=== PATIENT | male | born 1955 | race African-American/Black ===

== ENCOUNTER 2017-03-23 12:58 | Outpatient (RCR) | payer OTHER, SELFPAY ==
--- NOTE | 2017-03-23 14:15 | HP.PTEVAL_ITS ---
Patient's Visit Information FELIPA VILLANUEVA is a 61 year old M referred to Physical Therapy by Justin CALDERON with a diagnosis of LUMBAGO. Date of Evaluation: 03/23/17 Physical Therapist: Micah Castro, PT, - Visit Plan Frequency: 2x /Week Duration: 4 Weeks Plan: DLS,POSTURE EX'S ,MECKENZIE EX'S - Subjective Subjective: This 61 y/o male presents to physical therapy with lumbago. Patient has lumbar pain many years. Paient has pain symmtrical lumbar. Symptoms worse with heavy lifting, occassional walking,bending. Dneis parathesia/tingling. Coughing/sneezing -. Seen Dr jesus alberto PT. NO MEDS. Pain doesnt affects sleeping.No prior PT. Patient h/o cervical spine. 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 SOCAIL: - Pain Bilateral Back Pain Intensity (Out of 10): 2 Pain Intensity Range: 10 - Objective POSTURE: WFL. GAIT: normal tomás reciprocal pattern. PALPATION: unremrkable. NEURO:reflexes L3-4,L4-5,L5-S1 2/3,MYTOMES INACT,DENIES PARATHESIA. SYMMTRIES : align. MMT: quads/hams 4/5 ,hip flexion 4/5,ankle 4/5 - Special Tests L/S Slump test left side: Negative L/S Slump test right side: Negative L/S Left Straight Leg Raise: Negative L/S Right Straight Leg Raise: Negative Lumbar Standing: Flexion - Mechanical Response: No effect Lumbar Standing: Flexion - Symptoms During Testing: No effect Lumbar Standing: Flexion - Symptoms After Testing: No effect Lumbar Standing: Extension - Mechanical Response: No effect Lumbar Standing: Extension - Symptoms During Testing: No effect Lumbar Standing: Extension - Symptoms After Testing: No effect Lumbar Standing: Right Side Glides - Mechanical Response: No effect Lumbar Standing: Right Side Vining - Symptoms During Testing: No effect Lumbar Standing: Right Side Vining - Symptoms After Testing: No effect Lumbar Standing: Left Side Vining - Mechanical Response: No effect Lumbar Standing: Left Side Vining - Symptoms During Testing: No effect Lumbar Standing: Left Side Vining - Symptoms After Testing: No effect Lumbar Lying: Flexion - Mechanical Response: No effect Lumbar Lying: Flexion - Symptoms During Testing: No effect Lumbar Lying: Extension - Mechanical Response: No effect Lumbar Lying: Extension - Symptoms During Testing: Increases Lumbar Lying: Extension - Symptoms After Testing: No worse - Goals Goal 1:: Independant with HEP Goal Time Frame: 4-6 Weeks Goal 2:: Independant with posture/body mechanics Goal Time Frame: 4-6 Weeks Goal 3:: No pain wit function activities Goal Time Frame: 4-6 Weeks Goal 4:: Patient d/c to prophalaxis Goal Time Frame: 4-6 Weeks Goal 5:: Patient have function of recovery Goal Time Frame: 4-6 Weeks - Rehabilitation Potential Physical Therapy Diagnosis: This patient has symmtrical lumbar pain with decrease core strength Rehabilitation Potential: Good - Anticipated Interventions Patient/Client Instruction: Educate patient on: Condition, Plan of Care For the Purpose of:: To decrease pain, To increase ROM, To improve muscle performance and motor function, To increase tolerance to activity/condition/ position, To improve performance and independence with ADL's, To improve ability of physical actions for home/community/work/leisure, To improve health of tissue, To decrease soft tissue restriction, To increase flexibility/ROM, To improve ability to perform tasks related to life management Therapeutic Exercise to Include: Strength training, Body mechanics, Postural training, Flexibilty training, Dynamic Lumbar Stabilization, Veronica Exercises For the Purpose of:: To decrease pain, To improve muscle performance and motor function, To increase tolerance to activity/condition/position, To improve performance and independence with ADL's, To improve ability of physical actions for home/community/work/leisure, To improve health of tissue, To decrease soft tissue restriction, To increase flexibility/ROM, To improve ability to perform tasks related to life management Thank you for the opportunity to evaluate your patient. For Medicare and Medicare HMO plans, please review the plan of care and approve it. It will need to be FAXED BACK to us at [phone] for Medicare purposes. Please let me know if there are questions or concerns regarding this plan of care. Physician Signature: Date:
--- NOTE | 2017-05-19 13:42 | HP.PTDCNRP_ITS ---
HP - Discharge Summary (1) - Patient Information FELIPA VILLANUEVA was seen in my office for initial evaluation on 03/23/17. The following Plan of Care was established for this patient: Initial Frequency: 2x /Week Initial Duration: 4 Weeks - Anticipated Interventions Patient/Client Instruction: Educate patient on: Condition, Plan of Care For the Purpose of:: To decrease pain, To increase ROM, To improve muscle performance and motor function, To increase tolerance to activity/condition/ position, To improve performance and independence with ADL's, To improve ability of physical actions for home/community/work/leisure, To improve health of tissue, To decrease soft tissue restriction, To increase flexibility/ROM, To improve ability to perform tasks related to life management Therapeutic Exercise to Include: Strength training, Body mechanics, Postural training, Flexibilty training, Dynamic Lumbar Stabilization, Veronica Exercises For the Purpose of:: To decrease pain, To improve muscle performance and motor function, To increase tolerance to activity/condition/position, To improve performance and independence with ADL's, To improve ability of physical actions for home/community/work/leisure, To improve health of tissue, To decrease soft tissue restriction, To increase flexibility/ROM, To improve ability to perform tasks related to life management This patient was last seen in our office . Pertinent comments regarding their Physical therapy will appear below: Patient seen for PT for Intial Evalution only and d/c to HEP. At this point I will be discontinuing this patient from physical therapy. I would be happy to see this patient again in the future if found appropriate by the physician. Thank you! Micah Castro, PT,
== END 2017-03-23 19:00 | disposition home or self-care (01) ==
LOC: PT 12:58
PROVIDERS: Family Provider Family Medicine; PCP Family Medicine; Visit Provider Family Medicine
DX: M54.5 Low back pain (principal)
CPT/HCPCS: 97110; 97161

== ENCOUNTER → 2017-08-03 14:51 | Outpatient (CLI) | payer OTHER, SELFPAY ==
--- NOTE | 2017-08-03 14:51 | DT_ITS ---
This patient was seen during an EMR downtime August 02, 2017 - August 09, 2017. This patient may have a combination of paper and electronic documentation or all paper documentation. All documentation is viewable within the e-chart portion of [facility] for each patient visit.
--- NOTE | 2017-08-03 17:00 | MRI_ITS ---
STUDY: MRI LUMBAR SPINE WITHOUT CONTRAST REASON FOR EXAM: Male, 61 years old. Low back pain TECHNIQUE: Standardized fat and water weighted pulse sequences were obtained in the sagittal and axial planes. COMPARISON: X-ray 03/15/2017 FINDINGS: There is a transitional vertebra designated S1 for the purposes of this dictation (image 7/13 sagittal T2). T12-L1: Normal endplates. Normal disc height, hydration and morphology. Normal bilateral facet joints. Normal central canal and bilateral lateral recesses. Normal bilateral intervertebral neural foramina. There is small focal shallow disc protrusion at T11-T12, incompletely included in the [id number]. Normal lumbar lordosis. There is no substantial scoliosis. Normal conus medullaris that terminates at the L1-2: There is disc desiccation, mild endplate spondylosis and disc bulge (image 7/13 sagittal T2). L2-3: Normal endplates. Normal disc height, hydration and morphology. Normal bilateral facet joints. Normal central canal and bilateral lateral recesses. Normal bilateral intervertebral neural foramina. L3-4: Normal endplates. Normal disc height, hydration and morphology. Normal bilateral facet joints. Normal central canal and bilateral lateral recesses. Normal bilateral intervertebral neural foramina. L4-5: There is disc desiccation, endplate spondylosis and shallow broad-based central/left foraminal/extraforaminal disc protrusion (image 8, 09/22 axial T2, 3, , 01/11 sagittal T2). Central and lateral recess spinal stenosis is mild to moderate in nature. Neural foraminal narrowing predominates on the left. L5-S1: Normal endplates. Normal disc height, hydration and morphology. Normal bilateral facet joints. Normal central canal and bilateral lateral recesses. Normal bilateral intervertebral neural foramina. Normal visualized sacral ala. Normal visualized paraspinous soft tissue structures. MRI/Spine Lumbar (Routine) IMPRESSION: Shallow broad-based disc protrusion, L4-L5, with mild to moderate central and lateral recess spinal stenosis and neural foraminal narrowing predominating on the left Electronically Signed: Scott Clinton MD at 11:30 EDT Tel , Service support ,
== END ==
PROVIDERS: Family Provider Family Medicine; PCP Family Medicine; Visit Provider Family Medicine
DX: M54.5 Low back pain (principal)
CPT/HCPCS: 72148

== ENCOUNTER 2017-08-30 12:00 | Outpatient (RCR) | payer OTHER, SELFPAY ==
--- NOTE | 2017-08-24 07:49 | HP.PTEVAL ---
Patient's Visit Information FELIPA VILLANUEVA is a 61 year old M referred to Physical Therapy by Justin Henriquez with a diagnosis of Lumbago, low back pain. Date of Evaluation: 08/23/17 Physical Therapist: Micah Castro PT, - Visit Plan Frequency: 1-2x /Week Duration: 4 Weeks Plan: REIL for self management. Progress core stability program next week. Can only come in for one f/u for now as pt leaves for [facility] [place] for a month on 09/03/17. - Subjective Subjective: Pt is a 61 y/o male referred for lumbago/back pain. Pt was seen in PT several months ago for same condition. He notes that after a long plane ride about a month ago to [place] he experienced a high amount of pain in his low back. He reports majority of his symptoms are located on his R side but will occasionally travel to the L side. He denies pain currently and overall has not had much pain since a month ago when his symptoms were exacerbated. He will report occasional radicular pain in the buttocks area. He had MRI performed which did show a disc protrusion and central/lateral stenosis. He leaves the country again on 09/03/17 for a month. Denies b/b incontinence, night pain, numbness, and weakness. Aggrevating factors: sitting. Easing factors: standing, walking. 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 SOCIAL: - Pain Low back Pain Intensity (Out of 10): 0 Pain Intensity Range: 10 - Objective OBSERVATION: Flexed sitting posture in waiting room. GAIT: normal tomás and non-antalgic. ROM: standing lumbar AROM full in all planes, some reproduction of symptoms with R LF. NEURO: dermatomes and myotomes intact. ASSESSORY: normal central PAIVM. FLEXIBILITY: HS normal Magdiel, - Special Tests L/S Left Straight Leg Raise: Negative L/S Right Straight Leg Raise: Negative - Goals Goal 1:: Pt will demonstrate proper upright sitting posture to improve tolerance to sitting. Goal Time Frame: 2-4 Weeks Goal 2:: Pt will be independent with HEP to sustain gains and allow him to self manage his symptoms. Goal Time Frame: 2-4 Weeks Goal 3:: Pt will report ability to sit without restriction to improve tolerance to travel duties for his job. Goal Time Frame: 2-4 Weeks Goal 4:: Pt will resume previous fitness routine to allow pt to maintain healthy lifestyle and for prophylatic spine care. Goal Time Frame: 2-4 Weeks - Rehabilitation Potential Physical Therapy Diagnosis: Pt is 61 y/o male referred for lumbago and low back pain. He was seen previously for physical therapy several months ago but had an exacerbation of symptoms a month ago when he was sitting for a long plane ride. His symptoms have nearly resolved since this incident. Since sitting exacerbated his symptoms and he improved with repeated extension in the past, assume an extension bias for this care. He has activity limitations that include decreased tolerance to sitting. This affects his participation with his usual activity level and travel duties for his job. He does exhibit some anxiety regarding his condition and this was addressed during the evaluation with education. Pt will benefit from skilled care to address the mentioned impairments to maximize the pt's functional potential. Rehabilitation Potential: Excellent - Anticipated Interventions Patient/Client Instruction: Educate patient on: Condition, Plan of Care, Benefits of Fitness Program For the Purpose of:: To decrease pain, To improve muscle performance and motor function, To improve ability to perform ADL's, To increase tolerance to activity/condition/position, To improve ability of physical actions for home/community/work/leisure, To improve health of tissue, To improve endurance, To reduce risk of recurrence, To improve self management Therapeutic Exercise to Include: Strength training, Endurance training, Body mechanics, Postural training, Active ROM, Dynamic Lumbar Stabilization, Veronica Exercises For the Purpose of:: To decrease pain, To improve muscle performance and motor function, To improve ability to perform ADL's, To increase tolerance to activity/condition/position, To improve ability of physical actions for home/community/work/leisure, To improve health of tissue, To reduce risk of recurrence, To prevent re-injury Functional electric stimulation: Yes TENS: Yes IF ES: Yes Other electric stimulation: Yes Cryotherapy (ice pack, ice massage): Yes Thermo therapy (hot pack): Yes Ultrasound (thermal/non thermal): Yes For the Purpose of:: To decrease pain, To improve muscle performance and motor function, To improve ability to perform ADL's, To improve ability of physical actions for home/community/work/leisure, To improve health of tissue Thank you for the opportunity to evaluate your patient. For Medicare and Medicare HMO plans, please review the plan of care and approve it. It will need to be FAXED BACK to us at [phone] for Medicare purposes. Please let me know if there are questions or concerns regarding this plan of care. Physician Signature: Date:
--- NOTE | 2018-01-12 15:28 | HP.PT.NRP ---
HP - Discharge Summary (1) - Patient Information FELIPA VILLANUEVA was seen in my office for initial evaluation on 08/23/17. The following Plan of Care was established for this patient: Initial Frequency: 1-2x /Week Initial Duration: 4 Weeks - Anticipated Interventions Patient/Client Instruction: Educate patient on: Condition, Plan of Care, Benefits of Fitness Program For the Purpose of:: To decrease pain, To improve muscle performance and motor function, To improve ability to perform ADL's, To increase tolerance to activity/condition/position, To improve ability of physical actions for home/community/work/leisure, To improve health of tissue, To improve endurance, To reduce risk of recurrence, To improve self management Therapeutic Exercise to Include: Strength training, Endurance training, Body mechanics, Postural training, Active ROM, Dynamic Lumbar Stabilization, Emma Exercises For the Purpose of:: To decrease pain, To improve muscle performance and motor function, To improve ability to perform ADL's, To increase tolerance to activity/condition/position, To improve ability of physical actions for home/community/work/leisure, To improve health of tissue, To reduce risk of recurrence, To prevent re-injury Functional electric stimulation: Yes TENS: Yes IF ES: Yes Other electric stimulation: Yes Cryotherapy (ice pack, ice massage): Yes Thermo therapy (hot pack): Yes Ultrasound (thermal/non thermal): Yes For the Purpose of:: To decrease pain, To improve muscle performance and motor function, To improve ability to perform ADL's, To improve ability of physical actions for home/community/work/leisure, To improve health of tissue This patient was last seen in our office 08/30/17. Pertinent comments regarding their Physical therapy will appear below: Patient seen for PT low back pain developing HEP WITH EMMA EX'S and DLS and patient education,Thus id d/c At this point I will be discontinuing this patient from physical therapy. I would be happy to see this patient again in the future if found appropriate by the physician. Thank you! Micah Castro, PT,
== END 2017-08-30 19:00 | disposition home or self-care (01) ==
LOC: PT 12:00
PROVIDERS: Family Provider Family Medicine; PCP Family Medicine; Visit Provider Family Medicine
DX: M54.5 Low back pain (principal)
CPT/HCPCS: 97110; 97161; 97530; 97535

== ENCOUNTER → 2017-11-02 09:08 | Outpatient (CLI) | payer OTHER, SELFPAY ==
[2017-11-02 10:08] LABS: Hemoglobin 14.4 g/dl (13.0-16.5); Mean Corp Hgb Conc 33.5 g/gl (32-36); Mean Corpuscular Hgb 27.3 pg (27.0-32.0); Mean Corpuscular Volume 81.6 fL (80-94); Mean Platelet Vol. 10.5 fl (6.2-12.0); Platelet Count 157 K/mm3 (150-450); RBC Distribution Width CV 12.7 % (11.6-14.6); RBC Distribution Width SD 38.2 fl (35.1-43.9); Red Blood Count 5.27 M/mm3 (4.6-6.2); White Blood Count 4.2 K/mm3 (4.4-11.0)
[2017-11-02 10:10] LABS: Scan Indicated on CBC? Y/N NO
[2017-11-02 10:39] LABS: ALB/GLOB Ratio 0.9 RATIO (0.9-2.4); AST(SGOT) 20 U/L (15-37); Alanine Aminotransfer ALT/SGPT 14 U/L (16-61); Albumin, Serum 3.6 g/dL (3.2-5.0); Alkaline Phosphatase 95 U/L (45-117); Anion Gap 8 (5-15); BUN 10 mg/dL (7-18); BUN/Creat Ratio 9.1 RATIO (10-20); Calcium,Total 8.6 mg/dL (8.5-10.1); Chloride 108 mmol/L (98-107); Cholesterol 220 mg/dL (200); EST Glomerular Filtration Rate 72 mL/min (>60); Est Glom Filt Rate - Afr Amer 87 mL/min (>60); Globulin 3.8 g/dL (2.2-4.2); Glucose 94 mg/dL (74-106); High Density Lipoprotein 48 mg/dL; PSA,Total - Annual Screen 0.98 ng/mL (0.00-4.00); Potassium 3.9 mmol/L (3.5-5.1); Protein, Total 7.4 g/dL (6.4-8.2); Sodium Level 142 mmol/L (136-145); T4 Free Direct 1.07 ng/dL (0.76-1.46); Thyroid Stim Hormone (TSH) 3.22 uIU/mL (0.358-3.74); Triglycerides 75 mg/dL; Very Low Density Lipoprotein 15 mg/dL (5-40)
== END ==
PROVIDERS: Family Provider Family Medicine; PCP Family Medicine; Visit Provider Family Medicine
DX: M25.562 Pain in left knee (principal); E29.1 Testicular hypofunction; E03.9 Hypothyroidism, unspecified
CPT/HCPCS: 36415; 73564; 80053; 80061; 84153; 84403; 84439; 84443; 85027; G0103

== ENCOUNTER → 2018-06-07 15:15 | Outpatient (CLI) | payer OTHER, SELFPAY ==
[2018-06-07 17:52] LABS: Vitamin D,25 Hydroxy 39.5 ng/mL (29.95-100.01)
[2018-06-07 17:57] LABS: ALB/GLOB Ratio 1.1 RATIO (0.9-2.4); AST(SGOT) 16 U/L (15-37); Alanine Aminotransfer ALT/SGPT 20 U/L (16-61); Albumin, Serum 3.9 g/dL (3.2-5.0); Alkaline Phosphatase 108 U/L (45-117); Anion Gap 6 (5-15); BUN 11 mg/dL (7-18); BUN/Creat Ratio 8.9 RATIO (10-20); Calcium,Total 8.7 mg/dL (8.5-10.1); Chloride 107 mmol/L (98-107); Cholesterol 212 mg/dL (200); Creatinine, Serum 1.23 mg/dL (0.70-1.30); EST Glomerular Filtration Rate 63 mL/min (>60); Est Glom Filt Rate - Afr Amer 77 mL/min (>60); Globulin 3.4 g/dL (2.2-4.2); Glucose 107 mg/dL (74-106); High Density Lipoprotein 50 mg/dL; Potassium 4.3 mmol/L (3.5-5.1); Protein, Total 7.3 g/dL (6.4-8.2); Sodium Level 143 mmol/L (136-145); T4 Free Direct 1.36 ng/dL (0.76-1.46); Thyroid Stim Hormone (TSH) 1.36 uIU/mL (0.358-3.74); Triglycerides 252 mg/dL; Very Low Density Lipoprotein 50 mg/dL (5-40)
== END ==
PROVIDERS: Family Provider Family Medicine; PCP Family Medicine; Referring Provider Family Medicine; Visit Provider Family Medicine
DX: E03.9 Hypothyroidism, unspecified (principal); E29.1 Testicular hypofunction; E55.9 Vitamin D deficiency, unspecified
CPT/HCPCS: 36415; 80053; 80061; 82306; 84403; 84439; 84443

== ENCOUNTER → 2018-11-30 15:29 | Outpatient (CLI) | payer OTHER, SELFPAY ==
--- NOTE | 2018-11-30 15:34 | RAD_ITS ---
STUDY: X-RAY - LEFT HAND REASON FOR EXAM: Male, 62 years old. Hand pain TECHNIQUE: 3 view(s) of the hand. COMPARISON: None. FINDINGS: Normal radiocarpal articulation. Normal distal radioulnar joint. Normal visualized carpal bones. Normal carpal articulations Normal carpometacarpal articulation of the thumb. Normal second through fifth carpometacarpal joints. Normal metacarpi. Normal metacarpophalangeal joint of the thumb. Normal interphalangeal joint of the thumb. Remote deformity of the base of the first metacarpal. Normal metacarpophalangeal joints of the second through fifth fingers. Normal proximal and distal interphalangeal joints of the second through fifth fingers. Normal phalanges of the second through fifth fingers. The soft tissue structures are unremarkable. RAD/Hand Min 3 Views IMPRESSION: Remote deformity of the base of the first metacarpal. No acute osseous abnormality is evident. Electronically Signed: Bridger Mishra MD at 16:21 EDT Tel , Service support ,
--- NOTE | 2018-11-30 15:34 | RAD_ITS ---
STUDY: X-RAY - RIGHT HAND REASON FOR EXAM: Male, 62 years old. Hand pain TECHNIQUE: 3 view(s) of the hand. COMPARISON: None. FINDINGS: Normal radiocarpal articulation. Normal distal radioulnar joint. Normal visualized carpal bones. Normal carpal articulations Normal carpometacarpal articulation of the thumb. Normal second through fifth carpometacarpal joints. Normal metacarpi. Normal metacarpophalangeal joint of the thumb. Normal interphalangeal joint of the thumb. Normal proximal and distal phalanges of the thumb. Normal metacarpophalangeal joints of the second through fifth fingers. Normal proximal and distal interphalangeal joints of the second through fifth fingers. Normal phalanges of the second through fifth fingers. The soft tissue structures are unremarkable. RAD/Hand Min 3 Views IMPRESSION: Normal x-ray examination of the hand. Electronically Signed: Bridger Mishra MD at 16:24 EDT Tel , Service support ,
== END ==
PROVIDERS: Family Provider Family Medicine; PCP Family Medicine; Referring Provider Family Medicine; Visit Provider Family Medicine
DX: M79.641 Pain in right hand (principal); M79.642 Pain in left hand
CPT/HCPCS: 73130

== ENCOUNTER → 2018-12-01 07:24 | Outpatient (CLI) | payer OTHER, SELFPAY ==
[2018-12-01 09:58] LABS: Absolute Lymphocyte Count 1.69 X10^3/uL (0.83-4.51); Absolute Neutrophil Count 1.5 X10^3/uL (2.0-7.7); Basophil# 0.03 X10^3/uL; Basophil% 0.8 % (0-1); Eosinophil# 0.08 X10^3/uL; Eosinophils% 2.2 % (0-5); Hematocrit 40.8 % (40-54); Hemoglobin 13.7 g/dL (13.0-16.5); Lymphocyte # 1.69 X10^3/ul (4.0); Lymphocyte % 45.8 % (19-41); Mean Corp Hgb Conc 33.6 g/dL (32-36); Mean Corpuscular Hgb 27.5 pg (27.0-32.0); Mean Corpuscular Volume 81.8 fL (80-94); Monocyte# 0.35 X10^3/uL; Monocyte% 9.5 % (0-10); NRBC Flagged by Analyzer 0 % (0-5); Neutrophil # 1.53 X10^3/uL (2.7-7.7); Neutrophil % 41.4 % (47-70); Platelet Count 183 K/mm3 (150-450); RBC Distribution Width CV 12.5 % (11.6-14.6); RBC Distribution Width SD 37.4 fl (35.1-43.9); Red Blood Count 4.99 M/mm3 (4.6-6.2); White Blood Count 3.7 K/mm3 (4.4-11.0)
[2018-12-01 10:16] LABS: Erythrocyte Sedimentation Rate 13 mm/hr (0-20)
[2018-12-01 10:25] LABS: Anion Gap 6 (5-15); BUN 14 mg/dL (7-18); BUN/Creat Ratio 12.2 RATIO (10-20); Calcium,Total 9.2 mg/dL (8.5-10.1); Chloride 109 mmol/L (98-107); Creatinine, Serum 1.15 mg/dL (0.70-1.30); EST Glomerular Filtration Rate 68 mL/min (>60); Est Glom Filt Rate - Afr Amer 83 mL/min (>60); Glucose 87 mg/dL (74-106); Potassium 4.1 mmol/L (3.5-5.1); Rheumatoid Factor < 10.0 IU/mL (<15); Sodium Level 144 mmol/L (136-145); T4 Free Direct 1.24 ng/dL (0.76-1.46); Thyroid Stim Hormone (TSH) 2.69 uIU/mL (0.358-3.74)
[2018-12-01 10:31] LABS: Vitamin D,25 Hydroxy 47.3 ng/mL (29.95-100.01)
[2018-12-02 13:11] LABS: ANTINUCLEAR ANTIBODIES DIRECT Negative (Negative)
== END ==
PROVIDERS: Family Provider Family Medicine; PCP Family Medicine; Referring Provider Family Medicine; Visit Provider Family Medicine
DX: M79.643 Pain in unspecified hand (principal); E03.9 Hypothyroidism, unspecified
CPT/HCPCS: 36415; 80048; 82306; 84439; 84443; 85025; 85652; 86038; 86431

== ENCOUNTER → 2018-12-12 14:50 | Outpatient (CLI) | payer OTHER, SELFPAY ==
[2018-12-12 14:38] VITALS: BMI 22.4
--- NOTE | 2018-12-12 14:51 | RAD_ITS ---
STUDY: X-RAY - LEFT KNEE REASON FOR EXAM: Chronic pain. TECHNIQUE: 4 view(s) of the knee. COMPARISON: Radiographs 11/02/2017. FINDINGS: Normal visualized distal femur. Normal visualized proximal tibia and fibula. Normal proximal tibiofibular articulation. Normal medial femorotibial compartment. There is mild joint space narrowing of the lateral femorotibial compartment. There are small marginal osteophytes and moderate joint space narrowing of the patellofemoral articulation. There is a small enthesophyte at the superior pole of the patella. 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 Electronically Signed: Too Falk MD at 15:28 EDT Tel , Service support ,
--- NOTE | 2018-12-12 14:51 | RAD_ITS ---
STUDY: X-RAY - RIGHT KNEE REASON FOR EXAM: Chronic pain. TECHNIQUE: 4 view(s) of the knee. COMPARISON: Radiographs 08/01/2013. FINDINGS: Normal visualized distal femur. Normal visualized proximal tibia and fibula. Normal proximal tibiofibular articulation. There are very small marginal osteophytes and mild joint space narrowing of the medial femorotibial compartment without interval change. Normal lateral femorotibial compartment. There are small marginal osteophytes and moderate joint space narrowing of the patellofemoral articulation without interval change. There is a small enthesophyte at the superior pole of the patella. RAD/Knee 4 or More Views IMPRESSION: Arthrosis of the medial femorotibial and patellofemoral compartments. Electronically Signed: Too Falk MD at 11:52 EDT Tel , Service support ,
== END ==
PROVIDERS: Family Provider Family Medicine; PCP Family Medicine; Referring Provider Orthopaedic Surgery; Visit Provider Orthopaedic Surgery
DX: M25.561 Pain in right knee (principal); M25.562 Pain in left knee
CPT/HCPCS: 73564

== ENCOUNTER → 2019-01-17 07:37 | Outpatient (CLI) | payer OTHER, SELFPAY ==
[2018-12-12 14:38] VITALS: BMI 22.4
--- NOTE | 2019-01-17 10:11 | RAD_ITS ---
HISTORY: inflammatory polyarthropathy ADDITIONAL HISTORY: None provided. TECHNIQUE: AP pelvis Number of images including paperwork: 1 COMPARISON: None FINDINGS: BONES: No acute fracture. JOINTS: No subluxation. Mild joint space narrowing of the hips. Mild degenerative changes of the sacroiliac joints. SOFT TISSUES: No distinct foreign body. RAD/Pelvis 1 or 2 Views IMPRESSION: Degenerative changes without acute osseous abnormality. at 2329 Reported and signed by: Aida De Dios MD Electronically Signed: Aida De Dios MD at 23:29 EST Tel , Service support ,
[2019-01-17 10:19] LABS: Erythrocyte Sedimentation Rate 13 mm/hr (0-20)
[2019-01-17 10:22] LABS: Absolute Lymphocyte Count 1.94 X10^3/uL (0.83-4.51); Absolute Neutrophil Count 1.8 X10^3/uL (2.0-7.7); Basophil# 0.04 X10^3/uL; Basophil% 0.9 % (0-1); Eosinophil# 0.16 X10^3/uL; Eosinophils% 3.7 % (0-5); Hematocrit 37.8 % (40-54); Hemoglobin 12.7 g/dL (13.0-16.5); Lymphocyte # 1.94 X10^3/ul (4.0); Lymphocyte % 44.8 % (19-41); Mean Corp Hgb Conc 33.6 g/dL (32-36); Mean Corpuscular Hgb 27.7 pg (27.0-32.0); Mean Corpuscular Volume 82.5 fL (80-94); Mean Platelet Vol. 11.1 fl (6.2-12.0); Monocyte# 0.44 X10^3/uL; Monocyte% 10.2 % (0-10); NRBC Flagged by Analyzer 0 % (0-5); Neutrophil # 1.75 X10^3/uL (2.7-7.7); Neutrophil % 40.4 % (47-70); Platelet Count 187 K/mm3 (150-450); RBC Distribution Width CV 13.4 % (11.6-14.6); RBC Distribution Width SD 40.2 fl (35.1-43.9); Red Blood Count 4.58 M/mm3 (4.6-6.2); White Blood Count 4.3 K/mm3 (4.4-11.0)
[2019-01-17 10:27] LABS: ALB/GLOB Ratio 1.1 RATIO (0.9-2.4); AST(SGOT) 17 U/L (15-37); Alanine Aminotransfer ALT/SGPT 14 U/L (16-61); Albumin, Serum 3.7 g/dL (3.2-5.0); Alkaline Phosphatase 98 U/L (45-117); Anion Gap 5 (5-15); BUN 13 mg/dL (7-18); BUN/Creat Ratio 11.8 RATIO (10-20); CRP < 2.90 mg/L (0.0-3.0); Calcium,Total 8.7 mg/dL (8.5-10.1); Chloride 107 mmol/L (98-107); EST Glomerular Filtration Rate 72 mL/min (>60); Est Glom Filt Rate - Afr Amer 87 mL/min (>60); Globulin 3.5 g/dL (2.2-4.2); Glucose 89 mg/dL (74-106); Potassium 3.9 mmol/L (3.5-5.1); Protein, Total 7.2 g/dL (6.4-8.2); Rheumatoid Factor < 10.0 IU/mL (<15); Sodium Level 141 mmol/L (136-145)
[2019-01-17 11:07] LABS: Hepatitis B Surface Antibody Reactive; Hepatitis B Surface Antigen Non-Reactive (Nonreactive); Hepatitis C Antibody Non-Reactive (Nonreactive)
[2019-01-18 15:19] LABS: ANTINUCLEAR ANTIBODIES DIRECT Negative (Negative)
[2019-01-23 22:42] LABS: CCP IgG Antibodies 9 units (0-19); HLA B27 Negative (.); Hepatitis B Core AB IgM Negative (Negative)
== END ==
PROVIDERS: Family Provider Family Medicine; PCP Family Medicine; Referring Provider Internal Medicine Rheumatology; Visit Provider Internal Medicine Rheumatology
DX: M06.4 Inflammatory polyarthropathy (principal); M17.0 Bilateral primary osteoarthritis of knee; E03.9 Hypothyroidism, unspecified; N40.1 Benign prostatic hyperplasia with lower urinary tract symptoms; N48.6 Induration penis plastica
CPT/HCPCS: 36415; 72170; 80053; 81374; 85025; 85652; 86038; 86140; 86200; 86431; 86705; 86706; 86803; 87340

== ENCOUNTER 2019-05-02 14:11 | Observation (INO) | payer OTHER, SELFPAY ==
[2018-12-12 14:38] VITALS: BMI 22.4
[2019-05-02] VITALS (11 sets, daily range): BP systolic 107–158; BP diastolic 60–91; PULSE 58–86; RESP 16–18; TEMP 36.6–36.8; O2SAT 96–100; BMI 24.7; BMI 22.3
--- NOTE | 2019-05-02 14:20 | EKG12_ITS ---
Test Reason : CP/SOB Blood Pressure : / mmHG Vent. Rate : 073 BPM Atrial Rate : 073 BPM P-R Int : 178 ms QRS Dur : 070 ms QT Int : 382 ms P-R-T Axes : 062 038 031 degrees QTc Int : 420 ms Normal sinus rhythm with sinus arrhythmia Normal ECG Confirmed by MAIKOL TELLO ([id number]), city editor BORA PATEL ([id number]) on 05/03/2019 2:23:52 PM Referred By: ES/UG Confirmed By:MAIKOL TELLO
--- NOTE | 2019-05-02 15:21 | ED.DCSUM_ITS ---
History of Present Illness Chief Complaint: Shortness of Breath Detail of Chief Complaint: Chest pressure Informant: Patient Onset: Days - 2 days Current Severity: Mild Maximum Severity: Mild Narrative: Patient presents with chest heaviness for the past 2 days. He states he initially thought it was secondary to lifting some extra weights while working out. When pain did not resolve after 2 days he called his doctor today. Patient does not believe he is short of breath, but states his chest hurts worse when he tries to take a deep breath. He has not had significant cough. He reports a mild headache and runny nose. No fever or chills. He denies personal history of cardiac disease. He does not believe he has family history of heart disease. - Past Medical History (1) Hypothyroid Status: Chronic Past Medical History - Allergies and Home Meds Allergies/Adverse Reactions: Allergies No Known Allergies Allergy (Verified 05/02/19 14:15) Primary Care Physician: Everette Henriquez MD [Primary Care Provider] - Prior records reviewed: Yes Lives: With Family Smoking Status: Never smoker Review of Systems General: Denies: Chills, Fever Eyes: Denies: Visual changes - bilaterally ENT: Reports: Rhinorrhea. Denies: Bilateral ear pain Cardiovascular: Reports: Chest pain. Denies: Palpitations, Heart racing Respiratory: Denies: Dyspnea, Cough Gastrointestinal: Denies: Abdominal pain, Nausea, Vomiting, Diarrhea Musculoskeletal: Denies: Back pain, Extremity Pain Skin: Denies: Rash Neurological: Reports: Headache. Denies: Weakness, Parasthesia Hematologic: Denies: Easy bruising, Easy bleeding Allergy: Denies: Uticaria Physical Exam Vital Signs/Narrative: Vital Signs Temp Pulse Resp BP Pulse Ox 05/02/19 14:12 97.9 F 86 18 127/79 H 99 Inital Vital Signs reviewed: Yes General: Well nourished, Well developed Head: Normocephalic ENT: Moist mucous membranes Neck: Supple Cardiovascular: Regular rate, Regular rhythm Respiratory: No distress, CTA bilaterally, Chest nontender Abdomen: Soft, Nontender Extremities: Nontender Skin: Normal color, No rash Neurological: Alert, Oriented x3, Normal Strength, Normal Sensation Psychological: Normal affect Diagnostic/Tx/Re-eval Impressions Chest X-Ray 05/02/19 15:25 IMPRESSION: No acute abnormality is seen. Electronically Signed: Best Schaeffer, at 15:38 EST , Service support , 05/02/19 15:25 Chest 1 View (Portable) [RAD] Stat Laboratory Results 05/02/19 05/02/19 15:30 15:30 WBC 5.0 RBC 4.65 Hgb 13.0 Hct 38.5 L MCV 82.8 MCH 28.0 MCHC 33.8 RDW Std Deviation 39.3 RDW Coeff of Liliana 13.1 Plt Count 170 MPV 10.7 Immature Gran % (Auto) 0.200 Neut % (Auto) 45.5 L Lymph % (Auto) 41.3 H [place] % (Auto) 10.6 H Eos % (Auto) 1.8 Baso % (Auto) 0.6 Absolute Neuts (auto) 2.3 Absolute Lymphs (auto) 2.06 Nucleated RBC % 0 Sodium 141 Potassium 4.0 Chloride 107 Carbon Dioxide 32.0 Anion Gap 2 L BUN 11 Creatinine 1.12 Estim Creat Clear Calc 63.12 Est GFR (MDRD) Af Amer 85 Est GFR (MDRD) Non-Af 70 BUN/Creatinine Ratio 9.8 L Glucose 93 Calcium 9.0 Troponin I 0.028 - EKG Initial EKG Interpretation: Sinus Rhythm - Sinus at [address] change. - Medical Decision Making Patient was given aspirin on arrival. On repeat evaluation patient is sitting upright working on his laptop. He is in no acute distress. His only complaint at this time is headache. He will be given Tylenol for this. Test results are discussed with him. His troponin is 0.028. This is not positive, however is measurable. I spoke with Dr. Zuleyma Woods. He presented to the emergency room to evaluate the patient. He will admit the patient to his service. ED Disposition - Plan for ED Patient: Disposition: Acute Care Hospital [facility] Diagnosis: Chest pain Referrals: Everette Henriquez MD [Primary Care Provider] -
--- NOTE | 2019-05-02 15:25 | RAD_ITS ---
STUDY: X-RAY CHEST REASON FOR EXAM: Male, 63 years old. Chest pain for 3 days TECHNIQUE: Single AP portable view of the chest. COMPARISON: Comparison is made with prior examination dated May 29, 2014. FINDINGS: EKG electrodes are seen. The lungs are clear and expanded. There is no demonstrated pleural abnormality. Normal size heart. Normal mediastinum and rich. Normal visualized pulmonary arteries. There is atherosclerotic tortuosity of the aortic arch and descending thoracic aorta. There are degenerative changes of the visualized thoracic spine. Normal visualized ribs, clavicles, and shoulders. There is no demonstrated abnormality of the visualized soft tissue structures of the upper abdomen. RAD/Chest 1 View (Portable) IMPRESSION: No acute abnormality is seen. Electronically Signed: Best Schaeffer, at 15:38 EST , Service support ,
--- NOTE | 2019-05-02 15:27 | ED.RN ---
NO OLD EKG
[2019-05-02 15:41] LABS: Absolute Lymphocyte Count 2.06 X10^3/uL (0.83-4.51); Absolute Neutrophil Count 2.3 X10^3/uL (2.0-7.7); Basophil# 0.03 X10^3/uL; Basophil% 0.6 % (0-1); Eosinophil# 0.09 X10^3/uL; Eosinophils% 1.8 % (0-5); Hematocrit 38.5 % (40-54); Lymphocyte # 2.06 X10^3/ul (4.0); Lymphocyte % 41.3 % (19-41); Mean Corp Hgb Conc 33.8 g/dL (32-36); Mean Corpuscular Volume 82.8 fL (80-94); Mean Platelet Vol. 10.7 fl (6.2-12.0); Monocyte# 0.53 X10^3/uL; Monocyte% 10.6 % (0-10); NRBC Flagged by Analyzer 0 % (0-5); Neutrophil # 2.27 X10^3/uL (2.7-7.7); Neutrophil % 45.5 % (47-70); Platelet Count 170 K/mm3 (150-450); RBC Distribution Width CV 13.1 % (11.6-14.6); RBC Distribution Width SD 39.3 fl (35.1-43.9); Red Blood Count 4.65 M/mm3 (4.6-6.2)
[2019-05-02] MEDS: Aspirin 81 MG TAB.CHEW 324 MG PO (15:53)
[2019-05-02] MEDS: 0.9% Normal Saline 1,000 ML 150 ML IV (15:53)
[2019-05-02 16:01] LABS: Anion Gap 2 (5-15); BUN 11 mg/dL (7-18); BUN/Creat Ratio 9.8 RATIO (10-20); Chloride 107 mmol/L (98-107); Creatinine, Serum 1.12 mg/dL (0.70-1.30); EST Glomerular Filtration Rate 70 mL/min (>60); Est Glom Filt Rate - Afr Amer 85 mL/min (>60); Estimated Creatinine Clearance 63.12 ml/min; Glucose 93 mg/dL (74-106); Sodium Level 141 mmol/L (136-145)
--- NOTE | 2019-05-02 16:46 | HP.PCM_ITS ---
History of Present Illness Date of Admission: 05/02/19 Chief Complaint: Chest discomfort The patient is a 63 year old M with no previous cardiac history other than hypothyroidism and BPH who has been fairly active over the last 2 to 3 days has been at the gym lifting weight and has also been under a tremendous amount of stress due to family as well as work-related issues. He had experienced a heaviness which was constant and felt that he could not take in a deep breath. He had called me and his primary physician and saw him and after further discussion it was decided to send him to the emergency room. He has had no chest pain with exertion when he was on the treadmill a few days ago and no palpitations. He has had a headache he has had no dizziness or diaphoresis no near syncope or syncope. He has had some insomnia. [] Past Medical History Allergies/Adverse Reactions: Allergies No Known Allergies Allergy (Verified 05/02/19 14:15) Home Medications: Ambulatory Orders Medication Instructions Recorded tamsulosin 0.4 mg capsule 0.8 mg PO DAILY #180 cap 12/12/18 Cholecalciferol (Vitamin D3) 2,000 unit PO DAILY 05/02/19 [Vitamin D3] Levothyroxine Sodium [Synthroid] 125 mcg PO DAILY 05/02/19 Multivitamin [Multivitamins] 1 tab PO DAILY 05/02/19 Past Medical History (Chronic Problems): Chronic Problems Hypothyroid (Chronic) Surgical History: no surgical history - *Family History Maternal History Items: Heart Disease Paternal History Items: Hypertension Lives: With Family Smoking Status: Never smoker Tobacco Use: Non-smoker Alcohol: None Drugs: None Review of Systems - Review of Systems General: Denies: Fever, Night Sweats, Fatigue HEENT: Reports: Vision Change, Head Aches Cardiovascular: Reports: Chest Discomfort. Denies: Shortness of Breath, Orthopnea, PND, Peripheral Edema, Palpitations, Lightheadedness, Dizziness, Near Syncope, Syncope Respiratory: Denies: Cough, Sputum Production, Hemoptysis Gastrointestinal: Denies: Indigestion, Hematemesis, Hematochezia, Melena Genitourinary: Denies: Dysuria, Hematuria Muscoloskeletal: Denies: Myalgias Skin: Denies: Rash Neurological: Denies: Dizziness Psychiatric: Denies: Anxiety Endocrine: Denies: Unexplained Weight Loss Hematologic/ Lymphatic: Denies: Anemia Subjectve: Pleasant gentleman in no distress at this time Objective: Vital Signs Temp Pulse Resp BP Pulse Ox 97.9 F 63 16 133/91 H 98 05/02/19 14:12 05/02/19 16:19 05/02/19 16:19 05/02/19 16:19 05/02/19 16:19 Oxygen Delivery Method Room Air Weight: 158 lb Body Mass Index (BMI) 24.7 General: Awake, Alert, Oriented x 3 HEENT: PERRL, EOMI, Sclera Non Icteric Neck: Supple, Good ROM, No Lymph Node Enlargement Lungs: Clear to auscultation Cardiovascular: Regular Rhythm, Normal S1, Normal S2, No Murmurs, No Rubs, No Gallops Vascular: No Carotid Bruits, Normal Femoral Pulses, Normal Radial Pulses, Normal Dorsalis Pedal Pulse, Normal Posterior Tibial Pulses Abdomen: Bowel Sounds Present, Soft, Non Tender, No HSM, No Organomegaly Extremities: No Cyanosis, No Clubbing, No edema Musculoskeletal: No Erythema Skin: No Rashes Lymphatic: No Lymph Node Enlargement Neurological: No Focal Motor or Sensory Deficit Psych/Mental Status: Appropriate VTE Information - Inpt Only VTE Present on Admission: No VTE Pharm Prophylaxis ordered?: Yes 05/02/19 15:30: WBC 5.0, RBC 4.65, Hgb 13.0, Hct 38.5 L, MCV 82.8, MCH 28.0, MCHC 33.8, Plt Count 170, MPV 10.7, Immature Gran % (Auto) 0.200, Neut % (Auto) 45.5 L, Lymph % (Auto) 41.3 H, [place] % (Auto) 10.6 H, Eos % (Auto) 1.8, Baso % (Auto) 0.6, Absolute Neuts (auto) 2.3, Nucleated RBC % 0 05/02/19 15:30: Sodium 141, Potassium 4.0, Chloride 107, Carbon Dioxide 32.0, Anion Gap 2 L, BUN 11, Creatinine 1.12, Est GFR (MDRD) Af Amer 85, Est GFR (MDRD) Non-Af 70, BUN/Creatinine Ratio 9.8 L, Glucose 93, Calcium 9.0, Troponin I 0.028 Rhythm: EKG: Normal sinus rhythm with a rate of 73 bpm and no acute changes Assessment/Plan 1. Chest pain-atypical * Patient presents with chest pain which is somewhat atypical. It appears to have been constant over the last 2 days and appears to be worth with taking in a deep breath. At this time he has no EKG changes but his troponin is minimally abnormal. I would recommend that we admit him and assess his cardiac enzymes, treat him with aspirin and if his enzymes remain unremarkable he would undergo an exercise myocardial perfusion stress test in the morning. Depending on the results of that test further recommendations will be made. * An echocardiogram should be performed to exclude any LV dysfunction or small pericardial effusion suggestive of pericarditis. * 2. Elevated blood pressure without the diagnosis of hypertension * His blood pressure is elevated at this time. He does not have a previous diagnosis of hypertension. I would like to start him on amlodipine 5 mg a day and see how he tolerates the above. * * I have discussed the above with him and he understands and agrees to proceed.
--- NOTE | 2019-05-02 16:53 | EKG12_ITS ---
Test Reason : CP ADMISSION Blood Pressure : / mmHG Vent. Rate : 059 BPM Atrial Rate : 059 BPM P-R Int : 218 ms QRS Dur : 072 ms QT Int : 396 ms P-R-T Axes : 066 029 041 degrees QTc Int : 392 ms Sinus bradycardia with 1st degree A-V block Otherwise normal ECG No previous ECGs available Confirmed by JITENDRA ADAMSON, KYLEE ([id number]), graphic editor ARGENTINA MORALES ([id number]) on 05/08/2019 4:06:15 PM Referred By: JITENDRA Confirmed By:KYLEE HAM MD
--- NOTE | 2019-05-02 16:53 | ECHOD_ITS ---
Reason For Study: cp Procedure This was a 2D Doppler, Color Flow transthoracic echocardiogram. Exam performed in department. Left Ventricle Normal LV size. Left ventricular systolic function is normal. The estimated ejection fraction is 60 %. Normal diastology for age. No regional wall motion abnormalities noted. Right Ventricle Normal RV size. Normal systolic function. Atria Normal left atrium. Normal right atrium. Mitral Valve Normal mitral valve. Tricuspid Valve Normal tricuspid valve. Aortic Valve Trisinus/trileaflet aortic valve. Mild focal aortic valve calcification. Pulmonic Valve Normal pulmonic valve. Great Vessels Normal aortic root. The pulmonary artery is normal size. Normal inferior vena cava. Pericardium/Pleural No pericardial effusion. MMode/2D Measurements & Calculations LVIDd: 4.0 cm IVSd: 1.1 cm Ao root diam: 3.1 cm LVIDs: 2.6 cm LVPWd: 1.2 cm LA dimension: 3.0 cm RVDd: 3.5 cm FS: 35.5 % LAV(MOD-bp): 33.8 ml LA A4 area: 14.2 cm2 RA A4 area: 12.8 cm2 LAV(MOD-bp) Indexed: 19.0 ml/m2 LAV(MOD-sp2): 33.6 ml LAV(MOD-sp4): 34.5 ml Time Measurements MV dec time: 0.23 sec Doppler Measurements & Calculations MV E max selwyn: 51.1 cm/sec Lat Peak E' [place]: 9.5 cm/sec Med Peak E' [place]: 7.4 cm/sec MV A max selwyn: 65.0 cm/sec E/E' lat: 5.4 E/E' med: 6.9 MV E/A: 0.79 MV V2 max: 67.2 cm/sec MV P1/2t max selwyn: 49.8 cm/sec Ao V2 max: 68.1 cm/sec MV max P.8 mmHg MV P1/2t: 97.8 msec Ao max P.9 mmHg MV V2 mean: 36.7 cm/sec MV dec slope: 149.2 cm/sec2 MV mean P.62 mmHg MVA(P1/2t): 2.2 cm2 MV V2 VTI: 18.8 cm LV V1 max: 66.6 cm/sec PA V2 max: 99.2 cm/sec LV V1 max P.8 mmHg Interpretation Summary Normal LV size. Left ventricular systolic function is normal. The estimated ejection fraction is 60 %. Normal diastology for age. Ordering Physician: Drake Palm Referring Physician: Justin Henriquez Performed By: Fabian Loyd RCS
[2019-05-02] MEDS: Acetaminophen 500 MG Tablet 1000 MG PO (17:10)
[2019-05-02] MEDS: Enoxaparin 80 MG/0.8 ML Syringe SC (17:53)
[2019-05-02] MEDS: amLODIPine 5 MG Tablet PO (17:53)
[2019-05-02] MEDS: Nitroglycerin (INPATIENT USE) 0.4 MG TAB.SUBL SUBLINGUAL ×2 (20:32→21:17)
[2019-05-02] MEDS: Temazepam 15 MG Capsule PO (21:15)
[2019-05-03 00:56] VITALS: BP 102/65; PULSE 70; RESP 16; TEMP 36.8; O2SAT 100
[2019-05-03 03:00] VITALS: PULSE 60
[2019-05-03] MEDS: 0.9% Normal Saline 1,000 ML 75 ML IV (03:28)
[2019-05-03] MEDS: Aspirin E.C. 81 MG Tablet PO (05:18)
[2019-05-03] MEDS: Levothyroxine 125 MCG Tablet PO (05:18)
[2019-05-03 05:54] LABS: Cholesterol 197 mg/dL (200); High Density Lipoprotein 54 mg/dL; Triglycerides 100 mg/dL; Very Low Density Lipoprotein 20 mg/dL (5-40)
[2019-05-03 06:31] VITALS: BP 122/74; PULSE 72; RESP 18; TEMP 36.5; O2SAT 99
[2019-05-03 06:47] VITALS: PULSE 75
--- NOTE | 2019-05-03 08:06 | EKG12_ITS ---
Test Reason : Blood Pressure : / mmHG Vent. Rate : 064 BPM Atrial Rate : 064 BPM P-R Int : 188 ms QRS Dur : 070 ms QT Int : 384 ms P-R-T Axes : 055 021 037 degrees QTc Int : 396 ms Normal sinus rhythm Normal ECG When compared with ECG of 02-MAY-2019 17:51, MANUAL COMPARISON REQUIRED, DATA IS UNCONFIRMED Confirmed by JITENDRA ADAMSON, KYLEE ([id number]), city editor ARGENTINA MORALES ([id number]) on 05/08/2019 4:03:48 PM Referred By: TIMBO Confirmed By:KYLEE HAM MD
[2019-05-03 11:11] VITALS: BP 118/77; PULSE 63; RESP 16; TEMP 36.4; O2SAT 100
[2019-05-03] MEDS: Multivitamins,Therapeutic Tablet 1 TABLET PO (11:14)
[2019-05-03] MEDS: Tamsulosin HCl 0.4 MG Capsule 0.8 MG PO (11:14)
--- NOTE | 2019-05-03 12:17 | STRESSREP ---
Stress Test Report Exercise myocardial perfusion stress test. 63-year-old male with a history of chest pain. Stress protocol: Resting KG demonstrates sinus bradycardia with a rate of 58 bpm normal intervals are noted resting blood pressures 128/84 mmHg. The patient exercised according to regular [place] protocol for total duration of 10 minutes the maximum heart rate attained was 176 bpm which was 112% of maximum predicted heart rate the maximum workload was 11.7 metabolic equivalents. Patient maintained sinus rhythm throughout the recording. At rest there were no ST or T wave changes noted suggest ischemia peak exercise upsloping ST changes only were noted less than 1 mm we did no meet the criteria for ischemia. The resting blood pressure was 128/84 with a peak blood pressure 152/74 mmHg rate-pressure product was 24,900 the test was terminated due to the target heart rate being achieved. No chest pain was noted. During recovery there was T wave inversion noted in V5 and V6. Myocardial perfusion protocol. 11.7 mCi of technetium 99m sestamibi was injected at rest. The patient exercised according to regular [place] protocol for 10 minutes at peak exercise 32.9 mCi of technetium 99m sestamibi was injected stress images were obtained stress and rest images were reconstructed and compared in the short axis vertical long horizontal long axis. Gated images were also obtained Perfusion SPECT analysis: Review of the stress images demonstrate normal uptake noted in the septum anterior wall and lateral wall. There was some mild diaphragmatic/GI attenuation artifact noted in the inferior wall. The resting images seem to demonstrate a similar pattern. No obvious reversibility is noted suggest ischemia. The gated ejection fraction is noted to be normal. At 62%. Conclusion: Exercise myocardial perfusion stress test with no obvious ischemia noted. High workload attained suggesting a low risk scan. Preserved ejection fraction.
--- NOTE | 2019-05-03 12:24 | PN.CARD_ITS ---
Subjectve: Patient seen and evaluated. Appears to doing well. Objective: Vital Signs Temp Pulse Resp BP Pulse Ox 97.5 F L 63 16 118/77 100 05/03/19 11:11 05/03/19 11:11 05/03/19 11:11 05/03/19 11:11 05/03/19 11:11 Oxygen Delivery Method Room Air Weight: 142 lb 9.6 oz Body Mass Index (BMI) 22.3 Intake and Output for Last 24 Hours 05/01/19 05/02/19 05/03/19 23:59 23:59 23:59 Intake Total 1103.75 / 1103.75 898.75 / 898.75 Balance 1103.75 / 1103.75 898.75 / 898.75 General: Awake, Alert, Oriented x 3 HEENT: PERRL, EOMI, Sclera Non Icteric Neck: Supple, Good ROM, No Lymph Node Enlargement Lungs: Clear to auscultation Cardiovascular: Regular Rhythm, Normal S1, Normal S2, No Murmurs, No Rubs, No Gallops Vascular: No Carotid Bruits, Normal Femoral Pulses, Normal Radial Pulses, Normal Dorsalis Pedal Pulse, Normal Posterior Tibial Pulses Abdomen: Bowel Sounds Present, Soft, Non Tender, No HSM, No Organomegaly Extremities: No Cyanosis, No Clubbing, No edema Musculoskeletal: No Erythema Skin: No Rashes Lymphatic: No Lymph Node Enlargement Neurological: No Focal Motor or Sensory Deficit Psych/Mental Status: Appropriate 05/02/19 15:30: WBC 5.0, RBC 4.65, Hgb 13.0, Hct 38.5 L, MCV 82.8, MCH 28.0, MCHC 33.8, Plt Count 170, MPV 10.7, Immature Gran % (Auto) 0.200, Neut % (Auto) 45.5 L, Lymph % (Auto) 41.3 H, [place] % (Auto) 10.6 H, Eos % (Auto) 1.8, Baso % (Auto) 0.6, Absolute Neuts (auto) 2.3, Nucleated RBC % 0 05/02/19 15:30: Sodium 141, Potassium 4.0, Chloride 107, Carbon Dioxide 32.0, Anion Gap 2 L, BUN 11, Creatinine 1.12, Est GFR (MDRD) Af Amer 85, Est GFR (MDRD) Non-Af 70, BUN/Creatinine Ratio 9.8 L, Glucose 93, Calcium 9.0, Troponin I 0.028 05/02/19 18:36: Troponin I 0.023 05/02/19 21:30: Troponin I 0.021 05/03/19 05:05: Triglycerides 100, Cholesterol 197, LDL Cholesterol 123, VLDL Cholesterol 20, HDL Cholesterol 54 Rhythm: EKG: ECHO: Stress Test: Cardiac Cath: PCI: CT Surgery: Holter monitor: EPS: PPM: CXR: Chest CT Scan: Medical Necessity - Tobacco Use Smoking Status: Never smoker Tobacco Use: Non-smoker Assessment/Plan 1. Chest pain-atypical * Patient presents with chest pain which is somewhat atypical. It appears to have been constant over the last 2 days and appears to be worth with taking in a deep breath. At this time he has no EKG changes but his troponin is minimally abnormal. * He underwent exercise stress testing where he exercised over 10 minutes with no EKG changes of ischemia. Nuclear images did not demonstrate any evidence of ischemia. * Based on the above I would recommend that he be treated with medical therapy. I would recommend initiation of statin and close follow-up 2. Elevated blood pressure without the diagnosis of hypertension * His blood pressure is elevated at this time. He does not have a previous diagnosis of hypertension. I would like to start him on amlodipine 5 mg a day and see how he tolerates the above. * * I have discussed the above with him and he understands and agrees to proceed. He can be discharged for outpatient follow-up
--- NOTE | 2019-05-03 12:30 | PCM.DC ---
- Discharge Diagnoses Current Active Problems: Current Active and Chronic Problems Hypothyroid (Chronic) Chest pain (Acute) Discharge Activity: Return to Normal Activity Allergies/Adverse Reactions: Allergies No Known Allergies Allergy (Verified 05/02/19 14:15) Medications to take at Discharge tamsulosin 0.4 mg capsule 0.8 mg PO DAILY #180 cap 12/12/18 Cholecalciferol (Vitamin D3) [Vitamin D3] 2,000 unit PO DAILY 05/02/19 Levothyroxine Sodium [Synthroid] 125 mcg PO DAILY 05/02/19 Multivitamin [Multivitamins] 1 tab PO DAILY 05/02/19 Amlodipine [Norvasc] 5 mg PO DAILY #60 tab 05/03/19 Atorvastatin Calcium [Lipitor] 10 mg PO QHS #60 tab 05/03/19 The following prescriptions were given: Atorvastatin Calcium [Lipitor] 10 mg PO QHS #60 tab Transmission Status: Pending to [id number] Amlodipine [Norvasc] 5 mg PO DAILY #60 tab Transmission Status: Pending to [facility]/pharmacy #[id number] Primary Care Physician: Everette Henriquez MD [Primary Care Provider] - Test Results: Test results from this visit will be discussed in further detail at your follow-up appointment, if applicable. Please Follow Up With: grant in 2 months
[2019-05-03 12:50] VITALS: BP 122/71
[2019-05-03] MEDS: amLODIPine 5 MG Tablet PO (12:58)
== END 2019-05-03 12:30 | disposition home or self-care (01) ==
LOC: ED 16:40 → PCU 05-03 06:08
PROVIDERS: Admitting Provider Internal Medicine Cardiovascular Disease; Emergency Provider Emergency Medicine; PCP Family Medicine; Visit Provider Internal Medicine Cardiovascular Disease
DX: R07.89 Other chest pain (principal); R06.02 Shortness of breath; E03.9 Hypothyroidism, unspecified; Z79.899 Other long term (current) drug therapy; N40.0 Benign prostatic hyperplasia without lower urinary tract symptoms; R03.0 Elevated blood-pressure reading, without diagnosis of hypertension
CPT/HCPCS: 36415; 71045; 78452; 80048; 80061; 84484; 85025; 93005; 93017; 93306; 96360; 96361; 96372; 99218; 99285; A9500; J7030; A4216; G0378

== ENCOUNTER → 2019-10-26 08:36 | Outpatient (CLI) | payer OTHER, SELFPAY ==
[2019-05-02 17:26] VITALS: BMI 22.3
[2019-10-26 10:16] LABS: Erythrocyte Sedimentation Rate 17 mm/hr (0-20)
[2019-10-26 10:17] LABS: Hematocrit 39.6 % (40-54); Hemoglobin 13.5 g/dL (13.0-16.5); Mean Corp Hgb Conc 34.1 g/dL (32-36); Mean Corpuscular Hgb 27.8 pg (27.0-32.0); Mean Corpuscular Volume 81.5 fL (80-94); Mean Platelet Vol. 11.2 fl (6.2-12.0); Platelet Count 184 K/mm3 (150-450); RBC Distribution Width CV 12.4 % (11.6-14.6); RBC Distribution Width SD 36.8 fl (35.1-43.9); Red Blood Count 4.86 M/mm3 (4.6-6.2); White Blood Count 4.3 K/mm3 (4.4-11.0)
[2019-10-26 10:29] LABS: ALB/GLOB Ratio 0.9 RATIO (0.9-2.4); AST(SGOT) 18 U/L (15-37); Alanine Aminotransfer ALT/SGPT 18 U/L (16-61); Albumin, Serum 3.6 g/dL (3.2-5.0); Alkaline Phosphatase 103 U/L (45-117); Anion Gap 5 (5-15); BUN 13 mg/dL (7-18); BUN/Creat Ratio 12.1 RATIO (10-20); Calcium,Total 8.7 mg/dL (8.5-10.1); Chloride 106 mmol/L (98-107); Creatinine, Serum 1.07 mg/dL (0.70-1.30); EST Glomerular Filtration Rate 74 mL/min (>60); Est Glom Filt Rate - Afr Amer 90 mL/min (>60); Globulin 3.9 g/dL (2.2-4.2); Glucose 88 mg/dL (74-106); Potassium 3.8 mmol/L (3.5-5.1); Protein, Total 7.5 g/dL (6.4-8.2); Sodium Level 140 mmol/L (136-145); Thyroid Stim Hormone (TSH) 2.37 uIU/mL (0.358-3.74)
[2019-10-26 10:37] LABS: Vitamin D,25 Hydroxy 55.7 ng/mL
[2019-10-30 12:07] LABS: Testosterone, Free 11.17 ng/dL (5.00-21.00)
[2019-10-30 13:29] LABS: Testosterone, % Free 2.46 % (1.50-4.20); Testosterone, Total 454 ng/dL (264-916)
== END ==
PROVIDERS: PCP Family Medicine; Referring Provider Family Medicine; Visit Provider Family Medicine
DX: R53.83 Other fatigue (principal)
CPT/HCPCS: 36415; 80053; 82306; 84402; 84403; 84443; 85027; 85652

== ENCOUNTER → 2020-05-23 10:50 | Outpatient (CLI) | payer OTHER, SELFPAY ==
[2019-12-13 16:35] VITALS: BMI 23.3
[2020-05-23 11:38] LABS: PSA,Total- Diagnostic 1.31 ng/mL (0.0-4.0)
== END ==
PROVIDERS: PCP Internal Medicine
DX: N40.1 Benign prostatic hyperplasia with lower urinary tract symptoms (principal); R35.0 Frequency of micturition
CPT/HCPCS: 36415; 84153

== ENCOUNTER → 2020-05-30 14:16 | Outpatient (CLI) | payer OTHER, SELFPAY ==
[2020-05-30 13:09] VITALS: BMI 23.0
[2020-05-30 15:05] LABS: Absolute Lymphocyte Count 2.16 X10^3/uL (0.83-4.51); Absolute Neutrophil Count 1.8 X10^3/uL (2.0-7.7); Basophil# 0.03 X10^3/uL; Basophil% 0.7 % (0-1); Eosinophil# 0.13 X10^3/uL; Eosinophils% 2.9 % (0-5); Hematocrit 43.9 % (40-54); Hemoglobin 14.1 g/dL (13.0-16.5); Lymphocyte # 2.16 X10^3/ul (4.0); Mean Corp Hgb Conc 32.1 g/dL (32-36); Mean Corpuscular Hgb 26.8 pg (27.0-32.0); Mean Corpuscular Volume 83.5 fL (80-94); Mean Platelet Vol. 10.9 fl (6.2-12.0); Monocyte# 0.42 X10^3/uL; Monocyte% 9.3 % (0-10); NRBC Flagged by Analyzer 0 % (0-5); Neutrophil # 1.76 X10^3/uL (2.7-7.7); Neutrophil % 39.1 % (47-70); Platelet Count 212 K/mm3 (150-450); RBC Distribution Width CV 12.8 % (11.6-14.6); RBC Distribution Width SD 38.7 fl (35.1-43.9); Red Blood Count 5.26 M/mm3 (4.6-6.2); White Blood Count 4.5 K/mm3 (4.4-11.0)
[2020-05-30 15:21] LABS: Hemoglobin A1c 5.3 % (3.8-5.6)
[2020-05-30 15:40] LABS: AST(SGOT) 20 U/L (15-37); Alanine Aminotransfer ALT/SGPT 18 U/L (16-61); Albumin, Serum 4.1 g/dL (3.2-5.0); Alkaline Phosphatase 99 U/L (45-117); Anion Gap 2 (5-15); BUN 10 mg/dL (7-18); BUN/Creat Ratio 9.2 RATIO (10-20); Calcium,Total 9.6 mg/dL (8.5-10.1); Chloride 104 mmol/L (98-107); Creatinine, Serum 1.09 mg/dL (0.70-1.30); EST Glomerular Filtration Rate 72 mL/min (>60); Est Glom Filt Rate - Afr Amer 88 mL/min (>60); Globulin 4.3 g/dL (2.2-4.2); Glucose 95 mg/dL (74-106); Potassium 4.4 mmol/L (3.5-5.1); Protein, Total 8.4 g/dL (6.4-8.2); Sodium Level 138 mmol/L (136-145); Thyroid Stim Hormone (TSH) 1.02 uIU/mL (0.358-3.74)
== END ==
PROVIDERS: PCP Internal Medicine; Referring Provider Internal Medicine; Visit Provider Internal Medicine
DX: N40.0 Benign prostatic hyperplasia without lower urinary tract symptoms (principal); E03.9 Hypothyroidism, unspecified; R61 Generalized hyperhidrosis
CPT/HCPCS: 36415; 80053; 83036; 84443; 85025

== ENCOUNTER → 2020-06-06 | Outpatient (CLI) | payer OTHER, SELFPAY ==
[2020-05-30 13:09] VITALS: BMI 23.0
== END | disposition home or self-care (01) ==
LOC: LABSPEC 13:45
PROVIDERS: PCP Internal Medicine; Referring Provider Internal Medicine; Visit Provider Internal Medicine
DX: Z91.89 Other specified personal risk factors, not elsewhere classified (principal)
CPT/HCPCS: 87635; U0002

== ENCOUNTER → 2020-12-03 10:50 | Outpatient (CLI) | payer OTHER, SELFPAY ==
[2020-12-03 12:37] LABS: Free T3 2.4 pg/mL (2.18-3.98); T4 Free Direct 1.49 ng/dL (0.76-1.46); Thyroid Stim Hormone (TSH) 0.81 uIU/mL (0.358-3.74)
== END ==
PROVIDERS: PCP Internal Medicine; Referring Provider Internal Medicine; Visit Provider Internal Medicine
DX: E03.9 Hypothyroidism, unspecified (principal)
CPT/HCPCS: 36415; 84439; 84443; 84481

== ENCOUNTER → 2020-12-19 | Outpatient (CLI) | payer MEDICARE, SELFPAY | END | disposition home or self-care (01) | LOC: LABSPEC 08:16 | PROVIDERS: Referring Provider Physician Assistant; Visit Provider Physician Assistant | DX: Z20.822 Contact with and (suspected) exposure to COVID-19 (principal) | CPT/HCPCS: 87635; U0005; U0003 ==

== ENCOUNTER → 2021-09-26 | Outpatient (CLI) | payer BC, SELFPAY ==
--- NOTE | 2021-09-26 09:42 | US_ITS ---
STUDY: ABDOMINAL ULTRASOUND - RIGHT UPPER QUADRANT REASON FOR VISIT: Male, 65 years old Right upper quadrant pain TECHNIQUE: Ultrasound evaluation of the right upper quadrant was performed with real-time and static holbrook-scale imaging. TECHNICAL QUALITY: Adequate. COMPARISON: None. FINDINGS: Liver: The liver measures 13.9 cm. There is normal echogenicity of the liver. The bile ducts are within normal limits. There is hepatic color flow. The direction of portal flow is hepatopetal. There is no demonstrated mass lesion. Gallbladder: Normal distended gallbladder. The gallbladder wall measures 2 mm. There is a negative sonographic Nunez''s sign. There is no pericholecystic fluid. There are no gallstones. Common Bile Duct (C.B.D.): The common bile duct measures 4 mm. Pancreas: Pancreas is normal as visualized, incompletely seen. There is normal echogenicity of the pancreas. There is no demonstrated pancreatic mass or cyst. Right Kidney: Normal size of the right kidney. The right kidney measures 10.3 x 5.3 x 5.2 cm. Normal renal cortex. The right cortex measures 1.2 cm. There is no demonstrated renal mass or cyst. There is no right hydronephrosis. US/Abdomen Limited IMPRESSION: No evidence of acute abdominal process by ultrasound. No evidence of cholelithiasis or cholecystitis. Electronically Signed: Damion Davidson DO at 14:20 EDT ,
== END | disposition home or self-care (01) ==
LOC: US 09:39
PROVIDERS: PCP Internal Medicine; Referring Provider Internal Medicine; Visit Provider Internal Medicine
DX: R10.11 Right upper quadrant pain (principal); R07.81 Pleurodynia
CPT/HCPCS: 76705

== ENCOUNTER → 2021-10-03 | Outpatient (CLI) | payer BC, SELFPAY ==
--- NOTE | 2021-10-03 11:05 | RAD_ITS ---
EXAM: XR RIGHT RIBS AND AP CHEST, 3 OR MORE VIEWS CLINICAL INDICATION: Right lower rib discomfort TECHNIQUE: Frontal and oblique views of the right ribs and frontal view of the chest. This report was created using [employer] report [employer] 3D Inspection technology. COMPARISON: None. FINDINGS: LUNGS AND PLEURAL SPACES: Unremarkable. No consolidation or edema. No pneumothorax. No effusion. HEART: Unremarkable. Cardiac silhouette not enlarged. MEDIASTINUM: Central airways and mediastinal contour are unremarkable. BONES/JOINTS: Unremarkable. No evidence of displaced rib fractures. RAD/Ribs Uni Min 3V w/PA Chest IMPRESSION: Negative chest and right ribs series. Electronically Signed: Mervin Ruby MD at 14:19 EDT ,
== END | disposition home or self-care (01) ==
LOC: RAD 10:58
PROVIDERS: PCP Internal Medicine; Referring Provider Internal Medicine; Visit Provider Internal Medicine
DX: R07.81 Pleurodynia (principal); R10.11 Right upper quadrant pain
CPT/HCPCS: 71101

== ENCOUNTER → 2023-01-05 | Outpatient (CLI) | payer MEDICARE, SELFPAY ==
[2023-01-05 10:34] LABS: Erythrocyte Sedimentation Rate 6 mm/hr (0-20)
[2023-01-05 10:35] LABS: Absolute Neutrophil Count 1.8 X10^3/uL (2.0-7.7); Basophil# 0.03 X10^3/uL; Basophil% 0.7 % (0-1); Eosinophil# 0.05 X10^3/uL; Eosinophils% 1.1 % (0-5); Hematocrit 39.8 % (40-54); Hemoglobin 13.5 g/dL (13.0-16.5); Lymphocyte % 52.7 % (19-41); Mean Corp Hgb Conc 33.9 g/dL (32-36); Mean Corpuscular Hgb 28.6 pg (27.0-32.0); Mean Corpuscular Volume 84.3 fL (80-94); Mean Platelet Vol. 10.5 fl (6.2-12.0); Monocyte# 0.32 X10^3/uL; NRBC Flagged by Analyzer 0 % (0-5); Neutrophil # 1.75 X10^3/uL (2.7-7.7); Neutrophil % 38.5 % (47-70); Platelet Count 172 K/mm3 (150-450); RBC Distribution Width CV 13.2 % (11.6-14.6); RBC Distribution Width SD 40.8 fl (35.1-43.9); Red Blood Count 4.72 M/mm3 (4.6-6.2); White Blood Count 4.6 K/mm3 (4.4-11.0)
[2023-01-05 10:54] LABS: Vitamin D,25 Hydroxy 118.8 ng/mL
[2023-01-05 12:46] LABS: AST(SGOT) 14 U/L (15-37); Alanine Aminotransfer ALT/SGPT 9 U/L (16-61); Albumin, Serum 3.9 g/dL (3.2-5.0); Alkaline Phosphatase 84 U/L (45-117); Anion Gap 1 (5-15); BUN 16 mg/dL (7-18); BUN/Creat Ratio 15.8 RATIO (10-20); CRP < 2.90 mg/L (0.0-3.0); Calcium,Total 9.4 mg/dL (8.5-10.1); Chloride 110 mmol/L (98-107); Cholesterol 276 mg/dL (200); Creatinine, Serum 1.01 mg/dL (0.70-1.30); EST Glomerular Filtration Rate 78 mL/min (>60); Est Glom Filt Rate - Afr Amer 95 mL/min (>60); Free T3 2.3 pg/mL (2.18-3.98); Globulin 3.8 g/dL (2.2-4.2); Glucose 106 mg/dL (74-106); High Density Lipoprotein 77 mg/dL; PSA,Total - Annual Screen 1.38 ng/mL (0.00-4.00); Protein, Total 7.7 g/dL (6.4-8.2); Rheumatoid Factor < 10.0 IU/mL (<15); Sodium Level 140 mmol/L (136-145); T4 Free Direct 1.21 ng/dL (0.76-1.46); Thyroid Stim Hormone (TSH) 4.03 uIU/mL (0.358-3.74); Triglycerides 57 mg/dL; Very Low Density Lipoprotein 11 mg/dL (5-40)
[2023-01-06 12:09] LABS: ANTINUCLEAR ANTIBODIES DIRECT Negative (Negative)
[2023-01-06 13:08] LABS: CCP IgG Antibodies 4 units (0-19)
== END | disposition home or self-care (01) ==
LOC: LAB 09:41
PROVIDERS: PCP Internal Medicine; Referring Provider Internal Medicine; Visit Provider Internal Medicine
DX: Z00.00 Encounter for general adult medical examination without abnormal findings (principal); Z13.220 Encounter for screening for lipoid disorders; Z12.5 Encounter for screening for malignant neoplasm of prostate; E03.9 Hypothyroidism, unspecified; E55.9 Vitamin D deficiency, unspecified; M99.18 Subluxation complex (vertebral) of rib cage; M25.561 Pain in right knee; M25.562 Pain in left knee; M75.42 Impingement syndrome of left shoulder; R07.81 Pleurodynia
CPT/HCPCS: 36415; 80053; 80061; 82306; 84153; 84439; 84443; 84481; 85025; 85652; 86038; 86140; 86200; 86225; 86235; 86431; G0103

== ENCOUNTER → 2023-10-20 | Outpatient (CLI) | payer MEDICARE, SELFPAY ==
[2023-10-20 09:05] LABS: Absolute Lymphocyte Count 2.55 X10^3/uL (0.83-4.51); Absolute Neutrophil Count 1.7 X10^3/uL (2.0-7.7); Basophil# 0.03 X10^3/uL; Basophil% 0.6 % (0-1); Eosinophil# 0.06 X10^3/uL; Eosinophils% 1.3 % (0-5); Hematocrit 39.5 % (40-54); Hemoglobin 13.2 g/dL (13.0-16.5); Lymphocyte # 2.55 X10^3/ul (0.83-4.51); Lymphocyte % 54.4 % (19-41); Mean Corp Hgb Conc 33.4 g/dL (32-36); Mean Corpuscular Hgb 27.3 pg (27.0-32.0); Mean Corpuscular Volume 81.6 fL (80-94); Mean Platelet Vol. 10.3 fl (6.2-12.0); Monocyte# 0.34 X10^3/uL; Monocyte% 7.2 % (0-10); NRBC Flagged by Analyzer 0 % (0-5); Neutrophil % 36.3 % (47-70); Platelet Count 156 K/mm3 (150-450); RBC Distribution Width CV 12.7 % (11.6-14.6); RBC Distribution Width SD 37.8 fl (35.1-43.9); Red Blood Count 4.84 M/mm3 (4.6-6.2); White Blood Count 4.7 K/mm3 (4.4-11.0)
[2023-10-20 09:26] LABS: Vitamin D,25 Hydroxy 103.5 ng/mL
[2023-10-20 09:35] LABS: ALB/GLOB Ratio 0.9 RATIO (0.9-2.4); AST(SGOT) 14 U/L (15-37); Alanine Aminotransfer ALT/SGPT 9 U/L (16-61); Albumin, Serum 3.5 g/dL (3.2-5.0); Alkaline Phosphatase 85 U/L (45-117); Anion Gap 3 (5-15); BUN 7 mg/dL (7-18); BUN/Creat Ratio 7.3 RATIO (10-20); Calcium,Total 9.2 mg/dL (8.5-10.1); Chloride 110 mmol/L (98-107); Cholesterol 233 mg/dL (200); Creatinine, Serum 0.95 mg/dL (0.70-1.30); EST Glomerular Filtration Rate 83 mL/min (>60); Est Glom Filt Rate - Afr Amer 101 mL/min (>60); Free T3 2.1 pg/mL (2.18-3.98); Globulin 3.8 g/dL (2.2-4.2); Glucose 109 mg/dL (74-106); High Density Lipoprotein 77 mg/dL; Potassium 3.9 mmol/L (3.5-5.1); Protein, Total 7.3 g/dL (6.4-8.2); Sodium Level 140 mmol/L (136-145); T4 Free Direct 1.31 ng/dL (0.76-1.46); Triglycerides 44 mg/dL; Very Low Density Lipoprotein 9 mg/dL (5-40)
== END | disposition home or self-care (01) ==
LOC: LAB 08:45
PROVIDERS: PCP Internal Medicine; Referring Provider Internal Medicine; Visit Provider Internal Medicine
DX: Z00.00 Encounter for general adult medical examination without abnormal findings (principal); Z13.220 Encounter for screening for lipoid disorders; E78.5 Hyperlipidemia, unspecified; E03.9 Hypothyroidism, unspecified; E55.9 Vitamin D deficiency, unspecified; N40.0 Benign prostatic hyperplasia without lower urinary tract symptoms
CPT/HCPCS: 36415; 80053; 80061; 82306; 84439; 84443; 84481; 85025

== ENCOUNTER → 2024-03-23 | Outpatient (CLI) | payer MEDICARE, SELFPAY ==
[2024-03-23 11:05] LABS: Erythrocyte Sedimentation Rate 5 mm/hr (0-20)
[2024-03-23 11:08] LABS: Absolute Lymphocyte Count 2.71 X10^3/uL (0.83-4.51); Absolute Neutrophil Count 4.7 X10^3/uL (2.0-7.7); Basophil# 0.04 X10^3/uL; Basophil% 0.5 % (0-1); Eosinophil# 0.01 X10^3/uL; Eosinophils% 0.1 % (0-5); Hematocrit 38.6 % (40-54); Hemoglobin 13.1 g/dL (13.0-16.5); Lymphocyte # 2.71 X10^3/ul (0.83-4.51); Lymphocyte % 33.7 % (19-41); Mean Corp Hgb Conc 33.9 g/dL (32-36); Mean Corpuscular Hgb 28.1 pg (27.0-32.0); Mean Corpuscular Volume 82.7 fL (80-94); Mean Platelet Vol. 10.6 fl (6.2-12.0); Monocyte# 0.59 X10^3/uL; Monocyte% 7.3 % (0-10); NRBC Flagged by Analyzer 0 % (0-5); Neutrophil # 4.67 X10^3/uL (2.7-7.7); Neutrophil % 58.2 % (47-70); Platelet Count 210 K/mm3 (150-450); RBC Distribution Width CV 13.2 % (11.6-14.6); RBC Distribution Width SD 39.7 fl (35.1-43.9); Red Blood Count 4.67 M/mm3 (4.6-6.2)
[2024-03-23 11:46] LABS: AST(SGOT) 30 U/L (15-37); Alanine Aminotransfer ALT/SGPT 21 U/L (16-61); Albumin, Serum 3.8 g/dL (3.2-5.0); Alkaline Phosphatase 84 U/L (45-117); Anion Gap 7 (5-15); BUN 16 mg/dL (7-18); BUN/Creat Ratio 14.4 RATIO (10-20); CRP < 2.90 mg/L (0.0-3.0); Calcium,Total 9.5 mg/dL (8.5-10.1); Chloride 103 mmol/L (98-107); Creatinine, Serum 1.11 mg/dL (0.70-1.30); EST Glomerular Filtration Rate 70 mL/min (>60); Est Glom Filt Rate - Afr Amer 85 mL/min (>60); Globulin 3.9 g/dL (2.2-4.2); Glucose 98 mg/dL (74-106); Potassium 3.8 mmol/L (3.5-5.1); Protein, Total 7.7 g/dL (6.4-8.2); Sodium Level 137 mmol/L (136-145)
== END | disposition home or self-care (01) ==
LOC: LAB 10:16
PROVIDERS: PCP Internal Medicine; Referring Provider Internal Medicine; Visit Provider Internal Medicine
DX: R10.11 Right upper quadrant pain (principal)
CPT/HCPCS: 36415; 80053; 85025; 85652; 86140

== ENCOUNTER → 2024-04-19 | Outpatient (CLI) | payer MEDICARE, SELFPAY ==
--- NOTE | 2024-04-19 13:17 | CT_ITS ---
PROCEDURE: CT ABDOMEN AND PELVIS WITH CONTRAST REASON FOR EXAM: Abdominal pain. Weight loss TECHNIQUE: Contiguous axial scans of 3.75 mm slice thicknesses. Sagittal and coronal reconstruction images were obtained. One or more dose reduction techniques were used (e.g., automated exposure control, adjustment of mA and/or kv according to patient size, use of iterative reconstruction technique). IV CONTRAST: Isovue-300. 98 mL. COMPARISON: Ultrasound abdomen dated 09/26/2021. FINDINGS: Lung bases: Clear Liver: Multiple small hypodense nodules in the right hepatic lobe. Gallbladder: Unremarkable. Spleen: Unremarkable. Pancreas: Unremarkable. Adrenals: Unremarkable. Kidneys: Unremarkable. Bladder: Unremarkable. Reproductive Organs: [id number] prostatomegaly. Bowel: Unremarkable. Appendix: Normal. Lymph nodes: No suspicious lymph node enlargement. Vasculature: Mild atherosclerotic calcific disease. No aneurysms Peritoneum / Retroperitoneum: No ascites. No free air. Bones: Unremarkable. CT/Abdomen/Pelvis WITH Contrast IMPRESSION: 1. Small hypodense nodules in the right hepatic lobe most likely cysts. Can n ot exclude the presence of a small hemangioma. 2. Prostatomegaly. Reading Location: [facility]
== END | disposition home or self-care (01) ==
LOC: CT 13:14
PROVIDERS: PCP Internal Medicine; Referring Provider Internal Medicine Gastroenterology; Visit Provider Internal Medicine Gastroenterology
DX: R10.9 Unspecified abdominal pain (principal); R63.4 Abnormal weight loss
CPT/HCPCS: 74177; Q9967; A4216